=== PATIENT | male | born 1990 | race Caucasian/White ===

== ENCOUNTER 2023-08-29 12:35 | Emergency (ER) | payer OTHER, SELFPAY ==
[2023-08-29 12:50] VITALS: BP 138/87; PULSE 98; RESP 18; TEMP 36.8; O2SAT 96; BMI 41.2
--- NOTE | 2023-08-29 13:00 | ED_ITS ---
HPI - General Adult General Chief complaint: Cough Stated complaint: Cough, fever, nausea Time Seen by Provider: 08/29/23 12:44 Source: patient Mode of arrival: ambulatory Limitations: no limitations History of Present Illness HPI narrative: Patient is a 33-year-old male coming in today complaining of cough that is productive, fevers, body aches and fatigue. States he has been ill for the last 4 days. He states he feels nauseated but has not vomited. He is urinating normally. States that he has a couple loose stools per day. No sick contacts. No skin rashes. He has been eating and drinking daily, however today has not felt like drinking or eating anything. Past medical history is benign, he does not take any medications. He did take Tylenol prior to coming to the ED today. Related Data Home Medications Medication Instructions Recorded Confirmed No Known Home Medications 08/29/23 08/29/23 Allergies Allergy/AdvReac Type Severity Reaction Status Date / Time seafood AdvReac Severe Uncoded 08/29/23 12:53 Review of Systems Status of ROS: Reports: 10 or more systems reviewed and unremarkable except as noted in History and below PFSH [facility] Social History Smoking Status: Never smoker Do you use any of these nicotine containing products: None How often do you have a drink containing alcohol: never How often do you have six or more drinks on one occasion: Never AUDIT-C Alcohol total score: 0 Non-prescribed substance use: marijuana (any form) service: No Exam Narrative: Exam Narrative: Obese, well-developed patient in no acute distress, he is diaphoretic. Alert and oriented. Answers questions appropriately. Mood and affect are appropriate. Thoughts are goal oriented and rational. No tangential or magical thinking noted. Patient speaks in full sentences without needing to catch his breath. HEENT: Normocephalic atraumatic. Pupils are equally round reactive to light. Extraocular muscles are intact. Conjunctivae are moist without any icterus noted. Moist mucous membranes. Posterior pharynx is normal. Neck is soft. Cardiovascular: Heart is regular rate and rhythm S1 and S2 are present without any murmurs. Lungs: Patient does have some crackles in the right lower lung. Left lung is clear. Abdomen: Soft and nontender nondistended with normal bowel sounds. Protuberant. Skin: Well perfused without any obvious rashes. Const: Vital Signs, click to edit/add: Vital Signs - 24 hr 08/29/23 12:50 Temperature 98.3 F Pulse Rate [Right Pulse Oximeter] 98 Respiratory Rate 18 Blood Pressure [Ri ght Upper Arm] 138/87 Pulse Oximetry 96 Oxygen Delivery Me thod Room Air Course Course ED Course: Triple swab is positive for influenza B. Chest x-ray, read by me, does not show any acute infiltrates or evidence of pneumonia. Final radiologic read is pending at this time Vital Signs Vital signs: Initial Vital Signs Temperature 98.3 F 08/29/23 12:50 Temperature Source Temporal Artery Scan 08/29/23 12:50 Pulse Rate 98 08/29/23 12:50 Pulse Rhythm Regular 08/29/23 12:50 Respiratory Rate 18 08/29/23 12:50 Blood Pressure 138/87 08/29/23 12:50 Blood Pressure Mean 104 08/29/23 12:50 Blood Pressure Position Semi-Fowlers 08/29/23 12:50 Pulse Oximetry 96 08/29/23 12:50 Oxygen Delivery Method Room Air 08/29/23 12:50 Vital Signs Temperature 98.3 F 08/29/23 12:50 Pulse Rate 98 08/29/23 12:50 Respiratory Rate 18 08/29/23 12:50 Blood Pressure 138/87 08/29/23 12:50 Pulse Oximetry 96 08/29/23 12:50 Oxygen Delivery Method Room Air 08/29/23 12:50 Temperature 98.3 F 08/29/23 12:50 Pulse Rate 98 08/29/23 12:50 Respiratory Rate 18 08/29/23 12:50 Blood Pressure 138/87 08/29/23 12:50 Pulse Oximetry 96 08/29/23 12:50 Oxygen Delivery Method Room Air 08/29/23 12:50 Medical Decision Making MDM Narrative Medical decision making narrative: 33-year-old male with influenza B. Because patient has been sick for 4 days Tamiflu is not recommended at this time. Discussed symptomatic treatment. Lab Data Lab results reviewed: Yes I reviewed the patient's lab results Labs: Lab Results 08/29/23 Range/Units 12:49 SARS-CoV-2 (PCR) Negative SARS-CoV-2 (Negative) Influenza Type A (PCR) Negative PCR FLU A (Negative) Influenza Type B (PCR) POSITIVE PCR FLU B A (Negative) RSV (PCR) Negative PCR RSV (Negative) Discharge Plan Discharge Clinical Impression: Influenza B Patient Disposition: Home, Self-Care Condition: Stable Additional Instructions: Rest as much as you need to. Okay to use Tylenol or ibuprofen as needed/as directed per the bottle. Make sure you are staying well hydrated. Prescriptions: No Action No Known Home Medications Follow Up/Referrals: Provider,Not a Local [Primary Care Provider] - Stand Alone Forms: [employer] Info Instructions
--- NOTE | 2023-08-29 13:00 | XR_ITS ---
Final Report Patient: VEDA HASSAN Facility:?[facility] Patient ID:?[id number] Site Patient ID:?[id number]. Site :?[id number] Study:?XRay Chest 2V-08/29/2023 1:11:33 PM Ordering Physician:?DR. HOYOS Final Report: INDICATION: COUGH, FEVER, NAUSEA TECHNIQUE: Chest 2 views COMPARISON: None FINDINGS: Cardiovascular and mediastinum: Heart size and vasculature are normal in caliber and appearance. Lungs and pleural spaces: Lungs are clear. No sign of infiltrate or mass. No sign of pleural effusion. No pneumothorax. Bones and soft tissues: No significant findings. IMPRESSION: No acute findings. Dictated by Crow Vogt MD @ 08/29/2023 2:15:17 PM (Electronic Signature)
[2023-08-29 13:47] LABS: PCR FLU A Negative PCR FLU A (Negative); PCR FLU B POSITIVE PCR FLU B (Negative); PCR RSV Negative PCR RSV (Negative); SARS PCR* Negative SARS-CoV-2 (Negative)
== END 2023-08-29 14:12 | disposition home or self-care (01) ==
PROVIDERS: Emergency Provider Family Medicine
DX: J10.1 Influenza due to other identified influenza virus with other respiratory manifestations (principal)
CPT/HCPCS: 71046; 87631; 99283; 99284

== ENCOUNTER 2024-06-21 16:20 | Emergency (ER) | payer OTHER, SELFPAY ==
[2024-06-21 16:33] VITALS: BP 178/100; PULSE 85; RESP 18; TEMP 36.6; O2SAT 95; BMI 41.2
--- NOTE | 2024-06-21 18:07 | ED_ITS ---
HPI - General Adult General Chief complaint: Back Injury/Pain Stated complaint: pain in lower back to RT leg Time Seen by Provider: 06/21/24 17:53 Source: patient Mode of arrival: ambulatory Limitations: no limitations History of Present Illness HPI narrative: 34-year-old male presenting with low back pain radiating down the right leg. Pain radiates down the back of the leg does not go past the knee. He denies loss of bowel or bladder function. No fevers or chills. No nausea or vomiting. Pain is been present for 5 days. He denies any weakness of the lower extremity. Any kind of movement does make the pain worse. He denies any saddle anesthesia. Prevent states that he had a back injury when he was a child that required an injection. 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 Unfortunately, patient just moved here from [place], does not have any medical records and can not tell me anything else about his heart condition. He states that at the age of 23 he was supposed to go in and get it re-evaluated as this was placed when he was a child, he never went in for a follow-up. Patient takes no other medications, does smoke cigarettes. Related Data Previous Rx's ?Medication ?Instructions ?Recorded methylprednisolone 4 mg tablets in See Rx Instructions PO .COMPLEX 06/21/24 a dose pack (Medrol (Fred)) #21 ea Allergies Allergy/AdvReac Type Severity Reaction Status Date / Time seafood AdvReac Severe Uncoded 08/29/23 12:53 Review of Systems Status of ROS: Reports: 10 or more systems reviewed and unremarkable except as noted in History and below PFSH PFSH Social History Smoking Status: Never smoker Do you use any of these nicotine containing products: None How often do you have a drink containing alcohol: never How often do you have six or more drinks on one occasion: Never AUDIT-C Alcohol total score: 0 Non-prescribed substance use: marijuana (any form) service: No Exam Narrative: Exam Narrative: Obese, well-developed patient in no acute distress. Alert and oriented. Answers questions appropriately. Mood and affect are appropriate. Thoughts are goal oriented and rational. No tangential or magical thinking noted. Patient speaks in full sentences without needing to catch his breath. HEENT: Normocephalic atraumatic. Extraocular muscles are intact. Conjunctivae are moist without any icterus noted. Moist mucous membranes. Cardiovascular: Heart is regular rate and rhythm S1 and S2 are present without any murmurs. Lungs: Patient takes deep breaths without any discomfort. Extremities: Bilateral lower extremities are without edema. Normal DP and PT pulses. Skin: Well perfused without any obvious rashes. Back: Normal appearance. No tenderness over the thoracic or lumbar spine. He has some tenderness over the right-sided para spinal musculature of the lumbar spine. Strength is 5/5 of the lower extremities, both distal and proximal muscle groups. No footdrop. Reflexes are 2+ and symmetric at the knees. Straight leg test is positive. Const: Vital Signs, click to edit/add: Vital Signs - 24 hr 06/21/24 16:33 Temperature 97.9 F Pulse Rate [Right Pulse Oximeter] 85 Respiratory Rate 18 Blood Pressure [Ri ght Upper Arm] 178/100 H Pulse Oximetry 95 Oxygen Delivery Me thod Room Air Course Vital Signs Vital signs: Initial Vital Signs Temperature 97.9 F 06/21/24 16:33 Temperature Source Temporal Artery Scan 06/21/24 16:33 Pulse Rate 85 06/21/24 16:33 Pulse Rhythm Regular 06/21/24 16:33 Pulse Strength 3+ Normal 06/21/24 16:33 Respiratory Rate 18 06/21/24 16:33 Blood Pressure 178/100 H 06/21/24 16:33 Blood Pressure Mean 126 H 06/21/24 16:33 Blood Pressure Position Sitting 06/21/24 16:33 Pulse Oximetry 95 06/21/24 16:33 Oxygen Delivery Method Room Air 06/21/24 16:33 Vital Signs Temperature 97.9 F 06/21/24 16:33 Pulse Rate 85 06/21/24 16:33 Respiratory Rate 18 06/21/24 16:33 Blood Pressure 178/100 H 06/21/24 16:33 Pulse Oximetry 95 06/21/24 16:33 Oxygen Delivery Method Room Air 06/21/24 16:33 Temperature 97.9 F 06/21/24 16:33 Pulse Rate 85 06/21/24 16:33 Respiratory Rate 18 06/21/24 16:33 Blood Pressure 178/100 H 06/21/24 16:33 Pulse Oximetry 95 06/21/24 16:33 Oxygen Delivery Method Room Air 06/21/24 16:33 Medical Decision Making MDM Narrative Medical decision making narrative: 34-year-old male with low back pain with radiculopathy. Place the patient on a Medrol Dosepak, discussed Tylenol, heat and/or ice. Encourage patient to collect his medical records and establish care with a primary care provider. Discharge Plan Discharge Clinical Impression: Lumbar radiculopathy Patient Disposition: Home, Self-Care Condition: Stable Instructions: Lumbar Radiculopathy (ED) Additional Instructions: Take all steroid as prescribed. Ok to take Tylenol 1,000mg three times per day. Ok to use a heating pad or ice to the back - do not apply heat or ice directly to the skin and do not use for more than 20 minutes at a time. You should get your medical records together and establish care with a primary care provider. Return to the ER if you cannot control your bowels or bladder, you develop numbness of the groin area, you develop a fever or start vomiting. Prescriptions: New methylprednisolone [Medrol (Fred)] 4 mg tablets,dose pack See Rx Instructions .ROUTE .COMPLEX Qty: 21 0RF Rx Instructions: orally per package directions Follow Up/Referrals: Provider,Not a Local [Primary Care Provider] - Stand Alone Forms: [employer] Info Instructions
== END 2024-06-21 18:19 | disposition home or self-care (01) ==
LOC: ED 18:00
PROVIDERS: Emergency Provider Family Medicine
DX: M54.16 Radiculopathy, lumbar region (principal)
CPT/HCPCS: 99283; 99284